=== PATIENT | female | born 1990 | race African-American/Black ===

== ENCOUNTER 2020-09-03 19:16 | Emergency (ER) | payer OTHER ==
[~2020-09-03] VITALS: Ht 157.5 cm; Wt 86.4 kg
[2020-09-03] MEDS ORDERED: IBUPROFEN 600 MG TABLET PO ONE (21:45)
[2020-09-03 21:50] VITALS: BP 127/66
== END 2020-09-03 22:15 | disposition home or self-care (01) ==
LOC: EMS 19:16
DX: S93.401A Sprain of unspecified ligament of right ankle, initial encounter (principal); F17.210 Nicotine dependence, cigarettes, uncomplicated; X50.1XXA Overexertion from prolonged static or awkward postures, initial encounter; Y93.89 Activity, other specified; Y92.89 Other specified places as the place of occurrence of the external cause; Y99.8 Other external cause status
CPT/HCPCS: 29515; 99283

== ENCOUNTER 2021-02-24 02:46 | Emergency (ER) | payer OTHER ==
[~2021-02-24] VITALS: Ht 160 cm; Wt 93.2 kg
[2021-02-24] MEDS ORDERED: DOXYCYCLINE HYCLATE 100 MG TABLET PO ONE (03:45)
[2021-02-24] MEDS ORDERED: LIDOCAINE/PF 1% 2 ML VIAL IM ONE (03:45)
[2021-02-24] MEDS ORDERED: CefTRIAXone SODIUM 1 GM/VIAL IM ONE (03:45)
[2021-02-24 04:10] LABS: APPEARANCE,URINE CLOUDY (CLEAR); GLUCOSE, URINE (UA) NEGATIVE (NEGATIVE); KETONES,URINE 40 mg/dL (NEGATIVE); LEUKOCYTE ESTERASE ,URINE MODERATE (NEGATIVE); NITRATE,URINE NEGATIVE (NEGATIVE); OCCULT BLOOD,URINE TRACE (NEGATIVE); PROTEIN,URINE TRACE (NEGATIVE)
[2021-02-24 04:13] LABS: BILIRUBIN,URINE PRELIM. POSITIVE (NEGATIVE)
[2021-02-24 04:17] LABS: BACTERIA,URINE Moderate /HPF (None Seen); RBC,URINE 0-2 /HPF (0-2)
[2021-02-24 05:03] VITALS: BP 116/87
== END 2021-02-24 05:11 | disposition home or self-care (01) ==
LOC: EMS 02:50
DX: N34.2 Other urethritis (principal); F17.210 Nicotine dependence, cigarettes, uncomplicated; Z20.2 Contact with and (suspected) exposure to infections with a predominantly sexual mode of transmission
CPT/HCPCS: 81001; 81025; 87077; 87086; 87491; 87591; 96372; 99283; J0696; J3490; 87186